=== PATIENT | male | born 1945 | race Hispanic/Latino ===

== ENCOUNTER → 2021-02-09 | Outpatient (CLI) | payer MEDICARE ==
[~2021-02-09] MED LIST: 0.9%NACL 1000ML 1,000 ML IV ONE; FOLIC ACID PO; METF-444 PO; METF-446 PO; METH25VI11 IJ; METO-408 PO; NAPR500T6 PO; OMEP20CA12 PO
== END | disposition home or self-care (01) ==
LOC: CANPRESDC → DAH 10:00 → EDSTATUS 02-14 08:35
PROVIDERS: ATTEND Internal Medicine Gastroenterology
DX: Z01.810 Encounter for preprocedural cardiovascular examination (principal); Z20.822 Contact with and (suspected) exposure to COVID-19; K92.1 Melena; K21.9 Gastro-esophageal reflux disease without esophagitis; K59.04 Chronic idiopathic constipation; K57.30 Diverticulosis of large intestine without perforation or abscess without bleeding; Z86.010 Personal history of colon polyps
CPT/HCPCS: 87635; C9803

== ENCOUNTER 2021-02-28 05:50 | Day surgery (SDC) | payer MEDICARE ==
[2021-02-28] VITALS (7 sets, daily range): BP systolic 115–154; BP diastolic 71–85
[~2021-02-28] VITALS: Ht 177.8 cm; Wt 78.5 kg
[~2021-02-28 05:50] MED LIST changes: -0.9%NACL 1000ML 1,000 ML IV ONE; -METF-446 PO; -METO-408 PO; -NAPR500T6 PO
[2021-02-28] MEDS ORDERED: 0.9%NACL 1000ML 1,000 ML IV ONE (06:22)
[2021-02-28] MEDS ORDERED: PROPOFOL 10 MG/ML 20ML VIAL IV ONE (07:29)
[2021-02-28] MEDS ORDERED: LIDOCAINE HCL 1% 20 ML VIAL ONE (07:29)
== END 2021-02-28 08:40 | disposition home or self-care (01) ==
LOC: DAH 05:50 → ENDO 05:50 → EDSTATUS 14:23
PROVIDERS: ATTEND Internal Medicine Gastroenterology
DX: K92.1 Melena (principal); Z20.822 Contact with and (suspected) exposure to COVID-19; K59.04 Chronic idiopathic constipation; K21.00 Gastro-esophageal reflux disease with esophagitis, without bleeding; K31.7 Polyp of stomach and duodenum; K29.70 Gastritis, unspecified, without bleeding; K57.30 Diverticulosis of large intestine without perforation or abscess without bleeding; E78.5 Hyperlipidemia, unspecified; E11.9 Type 2 diabetes mellitus without complications; I10 Essential (primary) hypertension; M19.90 Unspecified osteoarthritis, unspecified site; Z86.010 Personal history of colon polyps; Z79.84 Long term (current) use of oral hypoglycemic drugs; Z79.899 Other long term (current) drug therapy; Z98.890 Other specified postprocedural states
CPT/HCPCS: 43239; 45378; 82948; 87635; 93005; A4215; A4221; A4222; A4223; A4606; A4620; A4657; A4663; C9803; J2704; J7030; G0105